=== PATIENT | female | born 1990 | race Caucasian/White ===

== ENCOUNTER 2019-10-26 22:51 | Emergency (ER) | payer OTHER, MEDICAID ==
[~2019-10-26] VITALS: Ht 157.5 cm; Wt 58.1 kg
[2019-10-26 23:00] VITALS: BP_SYST 125
--- NOTE | 2019-10-26 23:10 | NUR ---
Patient to ER bed 6 to gown for evaluation. Side rails up. Report given to DARLENE SOLIS.
--- NOTE | 2019-10-26 23:15 | NUR ---
ER Dr. GRADY at bedside examining patient.
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
--- NOTE | 2019-10-27 00:02 | NUR ---
ER Dr. PANCHAL at bedside examining patient.
[2019-10-27 01:25] VITALS: BP_SYST 125
--- NOTE | 2019-10-27 01:25 | NUR ---
Patient given written and verbal discharge instructions and verbalizes understanding. ER MD discussed with patient the results and treatment provided. Patient in stable condition. ID arm band removed. Patient educated on pain management and to follow up with PMD. Pain Scale 0/10 Opportunity for questions provided and answered.
== END 2019-10-27 01:25 | disposition home or self-care (01) ==
LOC: SED 22:51
DX: R04.0 Epistaxis (principal)
CPT/HCPCS: 99282